=== PATIENT | female | born 1955 | race Caucasian/White ===

== ENCOUNTER → 2017-03-26 15:22 | Outpatient (CLI) | payer OTHER ==
[2017-03-26 16:45] LABS: ERYTHROCYTE SEDIMENTATION RATE 13 mm/hr (0-30)
[2017-03-28 10:20] LABS: ANA REFLEX - DIRECT Negative (Negative)
[2017-03-29 14:25] LABS: BRUCELLA IGG Negative (Negative); BRUCELLA IGM Negative (Negative)
[2017-04-04 03:10] LABS: OVA + PARASITE EXAM Final report (())
[2017-04-04 03:10] LABS: OVA + PARASITE EXAM Final report (())
[2017-04-04 03:10] LABS: OVA + PARASITE EXAM Final report (())
== END | disposition home or self-care (01) ==
LOC: D.LABREF 15:22
PROVIDERS: Student in an Organized Health Care Education/Training Program
DX: I34.0 Nonrheumatic mitral (valve) insufficiency (principal)

== ENCOUNTER → 2018-11-01 15:37 | Outpatient (CLI) | payer OTHER | END | disposition home or self-care (01) | LOC: D.CT 15:30 | PROVIDERS: ATTEND Internal Medicine Gastroenterology | DX: R10.32 Left lower quadrant pain (principal) ==